=== PATIENT | female | born 1990 | race Caucasian/White ===

== ENCOUNTER → 2019-02-27 | Outpatient (CLI) | payer OTHER ==
--- NOTE | 2019-02-27 14:20 | XR ---
EXAMINATION TYPE: XR lumbosacral spine min 4V DATE OF EXAM: 02/27/2019 CLINICAL HISTORY: Low back pain after epidural injection 4 years ago TECHNIQUE: Frontal, lateral, and oblique images of the lumbar spine are obtained. COMPARISON: None. FINDINGS: There are 5 lumbar type vertebral bodies identified. The lumbar spine shows satisfactory alignment without evidence of acute fracture or dislocation. Vertebral body heights and disk space he ights are within normal limits. The oblique images appear within normal limits. The overlying soft tissue appears unremarkable. IMPRESSION: As above.
--- NOTE | 2019-02-27 14:21 | XR ---
EXAMINATION TYPE: XR thoracic spine complete DATE OF EXAM: 02/27/2019 CLINICAL HISTORY: Mid back pain after epidural injection 4 years ago. TECHNIQUE: Frontal, lateral, and swimmer's view of thoracic spine are obtained. COMPARISON: None. FINDINGS: Thoracic spine show satisfactory alignment without evidence of acute fracture or dislocatio n. Vertebral body heights and disc space heights are preserved. Visualized ribs are unremarkable tanner aterally. IMPRESSION: As above.
== END | disposition home or self-care (01) ==
LOC: RADXRMAIN 13:28
PROVIDERS: ATTEND Family Medicine
DX: M54.41 Lumbago with sciatica, right side (principal); G89.29 Other chronic pain; R20.2 Paresthesia of skin
CPT/HCPCS: 72072; 72110

== ENCOUNTER → 2019-07-30 | Outpatient (CLI) | payer OTHER ==
--- NOTE | 2019-07-30 20:53 | MR ---
EXAMINATION TYPE: MR cspine/lspine wo con DATE OF EXAM: 07/30/2019 COMPARISON: Plain film 02/27/2019 lumbar spine HISTORY: Neck and lower back pain, headaches, lt arm weakness, RLE radic TECHNIQUE: Multiplanar, multisequence imaging of the lumbar and cervical spine is performed without I V contrast. FINDINGS: Lumbar spine: Sagittal images of the lumbar spine show vertebral body heights and alignment to appear satisfactory loss of disc height and signal present L4-5, L5-S1, increased signal posterior aspect o f the disc is compatible with annular tears, minimal associated posterior disc bulges at these levels , there is no significant spinal stenosis or evident foraminal encroachment.. The conus medullaris is normal in position and signal. The bone marrow signal intensity is within normal limits. Mild degenerative disc disease L4-5, L5-S1 Cervical spine MRI: Reversal the normal cervical lordosis is present in the seen with muscle spasm. C ervical vertebral bodies show preserved height, alignment, and bone marrow signal. Some mild loss of disc signal at intervertebral levels C2-3, C3-4, C4-5 consistent with disc desiccation. No evident di sc herniation, foraminal encroachment, or spinal stenosis. Cervical cord signal is maintained. IMPRESSION: Loss of lordosis, disc desiccation.
== END | disposition home or self-care (01) ==
LOC: RADMRIMAIN 19:32
PROVIDERS: ATTEND Family Medicine
DX: M40.56 Lordosis, unspecified, lumbar region (principal); M54.12 Radiculopathy, cervical region
CPT/HCPCS: 72141; 72148

== ENCOUNTER → 2020-08-03 | Outpatient (CLI) | payer OTHER ==
--- NOTE | 2020-08-03 16:12 | US ---
EXAMINATION TYPE: US abdomen complete DATE OF EXAM: 08/03/2020 COMPARISON: NONE CLINICAL HISTORY: 30-year-old female R10.11 Right Upper Quad Pain. Indigestion for 2 years TECHNIQUE: Multiple sonographic images of the abdomen are obtained. FINDINGS: EXAM MEASUREMENTS: Liver Length: 17.2 cm Gallbladder Wall: 0.2 cm CBD: 4.7 mm Spleen: 12.1 cm Right Kidney: 9.4 x 3.9 x 4.5 cm Left Kidney: 10.6 x 3.5 x 4.9 cm Pancreas: wnl Liver: Borderline in size. Normal homogeneous appearance. No focal lesion. Gallbladder: wnl Evidence for sonographic Dickerson's sign: no CBD: wnl Spleen: wnl Right Kidney: wnl Left Kidney: wnl Upper IVC: wnl Abd Aorta: wnl IMPRESSION: 1. Borderline sized liver at 17.2 cm. 2. No gallstones or biliary ductal dilatation. No other specific abnormality seen.
== END ==
LOC: RADUSWWP 15:45
PROVIDERS: ATTEND Family Medicine
DX: R10.11 Right upper quadrant pain (principal)
CPT/HCPCS: 76700

== ENCOUNTER → 2020-08-09 | Outpatient (CLI) | payer OTHER ==
--- NOTE | 2020-08-09 11:25 | FL ---
EXAMINATION TYPE: FL UGI air DATE OF EXAM: 08/09/2020 11:08 AM COMPARISON: NONE CLINICAL HISTORY: K21.9 Gastro-esophageal reflux disease Upper GI examination was performed according to the air contrast technique. Barium and effervescent crystal was swallowed without difficulty or delay. Esophageal peristalsis and motility are within no rmal limits. There is no evidence for esophagitis, intraluminal mass, hiatal hernia. Throughout the course of the study there is mild gastroesophageal reflux noted without evidence for esophagitis. The stomach has a normal appearance in terms of its size, shape and location. No gastric filling defect s or ulcer craters are seen. The duodenal bulb and sweep are also free of intraluminal lesion or ulc er crater. IMPRESSION: Mild gastroesophageal reflux without evidence for esophagitis.
== END | disposition home or self-care (01) ==
LOC: RADUSWWP 10:00
PROVIDERS: ATTEND Family Medicine
DX: K21.9 Gastro-esophageal reflux disease without esophagitis (principal)
CPT/HCPCS: 74246

== ENCOUNTER 2020-10-13 18:14 | Emergency (ER) | payer OTHER ==
[2020-10-13 18:22] VITALS: BP 108/71; PULSE 78; RESP 18; TEMP 98.4
[2020-10-13] MEDS ORDERED: SODIUM CHLORIDE 0.9% 1,000 ML IV STA (19:28)
[2020-10-13] MEDS ORDERED: ONDANSETRON 4 MG/2 ML VIAL IVP STA (19:28)
[2020-10-13 19:53] LABS: Basophils % (A) 0 %; Eosinophils # (A) 0.1 k/uL (0-0.7); Eosinophils % (A) 1 %; HCT 41.5 % (34.0-46.0); HGB 13.7 gm/dL (11.4-16.0); Lymphocytes # (A) 2.1 k/uL (1.0-4.8); Lymphocytes % (A) 21 %; MCH 27.6 pg (25.0-35.0); MCHC 32.9 g/dL (31.0-37.0); MCV 83.9 fL (80.0-100.0); Mean Platelet Volume 7.9; Monocytes # (A) 0.4 k/uL (0-1.0); Monocytes % (A) 4 %; Neutrophils # (A) 6.9 k/uL (1.3-7.7); Neutrophils % (A) 71 %; Platelet Count 293 k/uL (150-450); RBC 4.95 m/uL (3.80-5.40); RDW 13.2 % (11.5-15.5); WBC 9.6 k/uL (3.8-10.6)
[2020-10-13 20:03] LABS: ALT 11 U/L (4-34); AST 20 U/L (14-36); African American GFR (CKD) >90 (>60 ml/min/1.73 sqM); Albumin 4.6 g/dL (3.5-5.0); Alkaline Phosphatase 62 U/L (38-126); Anion Gap 9 mmol/L; Blood Urea Nitrogen 8 mg/dL (7-17); Calcium 9.6 mg/dL (8.4-10.2); Carbon Dioxide 24 mmol/L (22-30); Chloride 104 mmol/L (98-107); Glucose 91 mg/dL (74-99); Lipase 128 U/L (23-300); Non-African American GFR(CKD) >90 (>60 ml/min/1.73 sqM); Potassium 3.8 mmol/L (3.5-5.1); Sodium 137 mmol/L (137-145); Total Bilirubin 0.4 mg/dL (0.2-1.3); Total Protein 7.5 g/dL (6.3-8.2)
--- NOTE | 2020-10-13 20:41 | ED ---
Nausea/Vomiting/Diarrhea HPI - General Chief complaint: Nausea/Vomiting/Diarrhea Stated complaint: 7?wks preg/nausea Time Seen by Provider: 10/13/20 19:03 Source: patient Mode of arrival: ambulatory Limitations: no limitations - History of Present Illness Initial comments: 30 year-old female patient presents to emergency department for evaluation of nausea and vomiting. Patient states that she has been very nauseated. States for the last 2-3 days she has been unable to keep down any food or fluid. States that she did have positive test at home, she believes she is around 7 weeks. . States she has been having some lower abdominal cramping. Denies any abnormal vaginal bleeding or discharge. Denies constipation or diarrhea. She does have an appointment coming up with the [facility] next week, Dr. Hoffman. Has not yet had ultrasound. Patient denies any recent rash, fever, chills, cough, shortness of breath, chest pain, back pain, numbness, tingling, dizziness, weakness, hematuria, dysuria, urinary urgency, urinary frequency, headache, visual changes, or any other complaints. - Related Data Previous Rx's Medication Instructions Recorded Cephalexin [Keflex] 500 mg PO BID #14 cap 10/13/20 Ondansetron [Zofran ODT] 4 mg PO Q8HR PRN #10 tab 10/13/20 Allergies Allergy/AdvReac Type Severity Reaction Status Date / Time No Known Allergies Allergy Verified 10/13/20 18:17 Review of Systems ROS Statement: Those systems with pertinent positive or pertinent negative responses have been documented in the HPI. ROS Other: All systems not noted in ROS Statement are negative. Past Medical History Past Medical History: No Reported History, GERD/Reflux Additional Past Medical History / Comment(s): multiple kidney infections History of Any Multi-Drug Resistant Organisms: None Reported Past Surgical History: Section Past Psychological History: No Psychological Hx Reported Smoking Status: Never smoker Past Alcohol Use History: None Reported Past Drug Use History: None Reported General Exam Limitations: no limitations General appearance: alert, in no apparent distress, other (This is a well-de veloped, well-nourished adult female patient in no acute distress. Vital signs upon presentation temperature 98.4F, pulse 78, respirations 18, blood pressure 108/71, pulse ox 100% on room air.) Eye exam: Present: normal appearance, PERRL, EOMI. Absent: scleral icterus, co njunctival injection, periorbital swelling ENT exam: Present: normal exam, normal oropharynx, mucous membranes moist Respiratory exam: Present: normal lung sounds bilaterally. Absent: respiratory distress, wheezes, rales, rhonchi, stridor Cardiovascular Exam: Present: regular rate, normal rhythm, normal heart sounds. Absent: systolic murmur, diastolic murmur, rubs, gallop, clicks GI/Abdominal exam: Present: soft, normal bowel sounds. Absent: distended, tenderness, guarding, rebound, rigid Neurological exam: Present: alert, oriented X3, CN II-XII intact Psychiatric exam: Present: normal affect, normal mood Skin exam: Present: warm, dry, intact, normal color. Absent: rash Course Vital Signs 10/13/20 18:17 Temperature 98.4 F Pulse Rate 78 Respiratory 18 Rate Blood Pressure 108/71 O2 Sat by Pulse 100 Oximetry Medical Decision Making - Medical Decision Making 30 year-old female patient presents to the emergency department for evaluation of nausea and vomiting, had positive test at home. Physical examination revealed soft and non-tender abdomen. Vitals are unremarkable. Labs reviewed showed Hcg count 09326. Urinalysis showed 12 wbc, occasional bacteria. She was given IV fluids and nausea medication. US obtained showed viable intrauterine measuring 7 weeks 5 days. pole did seem irregular, did discuss this with patient. She is instructed to have repeat US and re- evaluation by OBGYN. To be discharged with prescription for nausea medication and keflex for UTI. Instructed to follow-up with the primary care physician for recheck in 1-2 days. Return parameters discussed in detail. She verbalizes understanding and agrees with this plan. Case discussed my attending Dr. Kebede. - Lab Data Result diagrams: 10/13/20 19:40 10/13/20 19:40 Lab Results 10/13/20 10/13/20 10/13/20 Range/Units 19:40 19:40 19:40 WBC 9.6 (3.8-10.6) k/uL RBC 4.95 (3.80-5.40) m/uL Hgb 13.7 (11.4-16.0) gm/dL Hct 41.5 (34.0-46.0) % MCV 83.9 (80.0-100.0) fL MCH 27.6 (25.0-35.0) pg MCHC 32.9 (31.0-37.0) g/dL RDW 13.2 (11.5-15.5) % Plt Count 293 (150-450) k/uL MPV 7.9 Neutrophils % 71 % Lymphocytes % 21 % Monocytes % 4 % Eosinophils % 1 % Basophils % 0 % Neutrophils # 6.9 (1.3-7.7) k/uL Lymphocytes # 2.1 (1.0-4.8) k/uL Monocytes # 0.4 (0-1.0) k/uL Eosinophils # 0.1 (0-0.7) k/uL Basophils # 0.0 (0-0.2) k/uL Sodium 137 (137-145) mmol/L Potassium 3.8 (3.5-5.1) mmol/L Chloride 104 (98-107) mmol/L Carbon Dioxide 24 (22-30) mmol/L Anion Gap 9 mmol/L BUN 8 (7-17) mg/dL Creatinine 0.57 (0.52-1.04) mg/dL Est GFR (CKD-EPI)AfAm >90 (>60 ml/min/1.73 sqM) Est GFR (CKD-EPI)NonAf >90 (>60 ml/min/1.73 sqM) Glucose 91 (74-99) mg/dL Calcium 9.6 (8.4-10.2) mg/dL Total Bilirubin 0.4 (0.2-1.3) mg/dL AST 20 (14-36) U/L ALT 11 (4-34) U/L Alkaline Phosphatase 62 (38-126) U/L Total Protein 7.5 (6.3-8.2) g/dL Albumin 4.6 (3.5-5.0) g/dL Lipase 128 (23-300) U/L HCG, Quant 78905.2 mIU/mL Urine Color Yellow Urine Appearance Turbid H (Clear) Urine pH 8.0 (5.0-8.0) Ur Specific [place] 1.019 (1.001-1.035) Urine Protein Trace H (Negative) Urine Glucose (UA) Negative (Negative) Urine Ketones Trace H (Negative) Urine Blood Negative (Negative) Urine Nitrite Negative (Negative) Urine Bilirubin Negative (Negative) Urine Urobilinogen <2.0 (<2.0) mg/dL Ur Leukocyte Esterase Negative (Negative) Urine RBC 5 (0-5) /hpf Urine WBC 12 H (0-5) /hpf Urine WBC Clumps Many H (None) /hpf Ur Squamous Epith Cells 3 (0-4) /hpf Urine Bacteria Occasional H (None) /hpf Urine Mucus Occasional H (None) /hpf Urine Yeast (Budding) Many H (None) /hpf - Radiology Data Radiology results: report reviewed Ultrasound of the fetus was obtained. Report was reviewed in its entirety. Impression by Dr. Chopra shows ultrasound gestational age 7 weeks 5 days. pole seen is somewhat irregular. Follow-up recommended. Disposition Clinical Impression: Nausea and vomiting in Disposition: HOME SELF-CARE Condition: Good Instructions (If sedation given, give patient instructions): Nausea and Vomiting in (ED) Additional Instructions: Take medications as directed. Follow-up with [facility] for recheck as soon as possible. Return for any new, worsening, or concerning symptoms. Prescriptions: Ondansetron [Zofran ODT] 4 mg PO Q8HR PRN #10 tab PRN Reason: Nausea Is patient prescribed a controlled substance at d/c from ED?: No Referrals: [facility] [Provider Group] - 1-2 days [facility] [Provider Group] - 1-2 days Time of Disposition: 21:48
[2020-10-13] MEDS ORDERED: diphenhydrAMINE 50 MG/ML 1 ML VIAL IVP STA (21:12)
[2020-10-13] MEDS ORDERED: METOCLOPRAMIDE 5 MG/ML 2 ML VIAL IVP STA (21:12)
--- NOTE | 2020-10-13 21:14 | US ---
EXAMINATION TYPE: Transabdominal DATE OF EXAM: 10/13/2020 8:50 PM COMPARISON: NONE CLINICAL HISTORY: Abd cramping; 7 wks?. Cramping. Hx . . EXAM PERFORMED: Transvaginal (TV) and Transabdominal (TA) EXAM MEASUREMENTS: GESTATIONAL AGE / DATING Physician Established: Not yet established. Dates by LMP: (6 weeks/6 days) EDC: 06/02/2021 Dates by First Scan: This is first scan. Dates by Current Scan for: (7 weeks/5 days) EDC: 05/27/2021. MATERNAL ANATOMY Uterus: 11.4 x 6.8 x 5.2 cm. Multiple subcentimeter anechoic-hypoechoic areas in cervix. Right Ovary: 3.8 x 1.8 x 2.2 cm. Left Ovary: 3.4 x 2.7 x 2.4 cm. Anechoic area seen: 1.4 x 1.7 x 1.1 cm. Post CDS / Adnexa: Appear to be wnl. Presence of free fluid: None seen. Presence of corpus luteal cyst: Possible within left ovary, anechoic area mentioned above. Presence of subchorionic bleed: Possible.- Hypoechoic area seen adjacent to the gestational sac: 0.7 x 1.9 x 1.3 cm. GESTATION / SURVEY CRL: 1.15 cm. (7 weeks/2 days). Possible slightly irregular appearance of pole. Hyperechoic ma terial adjacent to the pole? Difficult to image. MSD: 3.12 cm. (8 weeks/0 days) Yolk Sac (normal less than 6mm): 2.7 mm. Heart Rate: 147 bpm, 153 bpm second measurement. Rhythm: Normal IUP: Viable IUP Date of LMP: 08/26/2020 Beta HcG (if available): Not available. IMPRESSION: The ultrasound gestational age is 7 weeks and 5 days. pole seen is somewhat irregular. Follow-u p recommended.
[2020-10-13 21:24] LABS: HCG,Quantitative Serum 89842.2 mIU/mL
[2020-10-13 21:27] LABS: Appearance,Urine Turbid (Clear); Bacteria,Urine Occasional /hpf; Bilirubin,Urine Negative (Negative); Blood,Urine Negative (Negative); Budding Yeast,Urine Many /hpf; Color,Urine Yellow; Glucose,Urine (UA) Negative (Negative); Ketones,Urine Trace (Negative); Leukocyte Esterase,Urine Negative (Negative); Mucus,Urine Occasional /hpf; Nitrite,Urine Negative (Negative); Protein,Urine Trace (Negative); RBC,Urine 5 /hpf (0-5); Specific Gravity,Urine 1.019 (1.001-1.035); Squamous Epithelial Cell,Urine 3 /hpf (0-4); Urobilinogen,Urine <2.0 mg/dL (<2.0); WBC,Urine 12 /hpf (0-5)
== END 2020-10-13 22:04 | disposition home or self-care (01) ==
LOC: EC 18:14
DX: O21.9 Vomiting of pregnancy, unspecified (principal); Z3A.01 Less than 8 weeks gestation of pregnancy
CPT/HCPCS: 36415; 76801; 76817; 80053; 81001; 83690; 84702; 85025; 87086

== ENCOUNTER → 2023-12-21 | Outpatient (CLI) | payer OTHER ==
--- NOTE | 2023-12-21 13:08 | XR ---
EXAMINATION TYPE: XR chest 2V DATE OF EXAM: 12/21/2023 COMPARISON: NONE HISTORY: Chest pain TECHNIQUE: Frontal and lateral views of the chest are obtained. FINDINGS: There is no focal air space opacity. No evidence for pneumothorax. No pleural effusion. The cardiac silhouette size is within normal limits. The osseous structures are grossly intact. IMPRESSION: 1. No acute cardiopulmonary process.
[2023-12-21 17:00] LABS: C Reactive Protein <0.30 mg/dL (0.00-0.80); Creatine Kinase 106 U/L (26-186)
[2023-12-21 17:48] LABS: Hepatitis C IgG Antibody Nonreactive (Nonreactive)
[2023-12-21 18:21] LABS: Protein, Total 6.7 g/dL (6.2-8.2)
[2023-12-21 19:59] LABS: JO-1 IgG Antibody <0.2 AI
== END | disposition home or self-care (01) ==
LOC: RADXRMAIN 12:16
PROVIDERS: ATTEND Nurse Practitioner Family
DX: M35.00 Sjogren syndrome, unspecified (principal); I73.00 Raynaud's syndrome without gangrene; R07.9 Chest pain, unspecified; R20.2 Paresthesia of skin; R53.82 Chronic fatigue, unspecified; R06.00 Dyspnea, unspecified
CPT/HCPCS: 71046; 82550; 84165; 85652; 86140; 86160; 86235; 86803